=== PATIENT | female | born 1960 | race Caucasian/White ===

== ENCOUNTER 2017-04-14 07:17 | Observation (INO) | payer OTHER ==
[~2017-04-14] VITALS: Ht 165.1 cm; Wt 132.8 kg
[~2017-04-14 07:17] MED LIST: BACITRACIN TOP OINT 15 GM TUBE ONE; LIDOCAINE 1%/EPINEPHrine 1:100,000 SOLN 30 ML VIAL ONE; OXYMETAZOLINE HCL 0.05% 15 ML NASAL SPRAY ONE
[2017-04-14 07:47] VITALS: BP 159/82; PULSE 65; RESP 18; TEMP 97.7; O2SAT 96
[2017-04-14] MEDS ORDERED: SODIUM CHLORIDE 0.9% INJ 50 ML ONE (08:03)
[2017-04-14] MEDS ORDERED: LACTATED RINGER'S 1000 ML INJ 1,000 ML ONE (08:03)
[2017-04-14] MEDS ORDERED: CLINDAMYCIN PHOS 900 MG/6 ML VIAL ONE (08:03)
[2017-04-14] MEDS ORDERED: OXYB5TAB10 PO (08:11)
[2017-04-14] MEDS ORDERED: FLUT1SPR5 EACH NARE (08:11)
[2017-04-14] MEDS ORDERED: AMLO5CAP3 PO (08:11)
[2017-04-14] MEDS ORDERED: FLUTI110I INH (08:11)
[2017-04-14] MEDS ORDERED: ALBUAER3 INH (08:11)
[2017-04-14] MEDS ORDERED: fentaNYL CITRATE 250 MCG/5 ML AMP ONE (08:16)
[2017-04-14] MEDS ORDERED: ACETAMINOPHEN 1000 MG/100 ML VIAL IV ONE (08:25)
[2017-04-14] MEDS ORDERED: ONDANSETRON HCL 4 MG/2 ML VIAL IV PUSH ONE (12:00)
[2017-04-14] MEDS ORDERED: PROPOFOL 200 MG/20 ML AMP IV ONE (12:00)
[2017-04-14] MEDS ORDERED: NEOSTIGMINE 3 MG/3 ML SYR IV ONE (12:00)
[2017-04-14] MEDS ORDERED: ONDANSETRON HCL 4 MG/2 ML VIAL IV PUSH PRN (12:15)
[2017-04-14] MEDS: LACTATED RINGER'S 1000 ML INJ 1,000 ML IV SCH ×2 (12:34→23:30)
[2017-04-14 12:45] VITALS: O2SAT 97
[2017-04-14 13:25] VITALS: BP 156/81; PULSE 76; RESP 19; TEMP 97.2; O2SAT 98
[2017-04-14] MEDS: ACETAMINOPHEN/HYDROcodone 325 MG/5 MG TAB PO PRN ×2 (15:05→23:25)
[2017-04-14] MEDS: CLINDAMYCIN 600 MG/NS 100 ML IV SCH ×4 (15:44→23:30)
[2017-04-14 17:37] VITALS: BP 165/98; PULSE 87; RESP 19; TEMP 95.7; O2SAT 96
--- NOTE | 2017-04-14 18:24 | EKG ---
Date Performed: 04/14/2017 Time Performed: 08:30:30 PTAGE: 57 years EKG: Sinus rhythm . Poor R wave progression - probable normal variant Low QRS voltages in precordial leads Borderline E CG NO PREVIOUS TRACING DOCTOR: Flako Holbrook Interpretating Date/Time 04/14/2017 18:22:51
[2017-04-14 20:00] VITALS: BP 131/80; PULSE 85; RESP 20; TEMP 96.7; O2SAT 94; O2SAT 96
[2017-04-15] VITALS: BP 105/60; PULSE 77; RESP 20; TEMP 96.7; O2SAT 96
[2017-04-15 04:00] VITALS: BP 109/61; PULSE 70; RESP 20; TEMP 96.4; O2SAT 98
--- NOTE | 2017-04-15 06:46 | MP ---
cc: ZACHARY LEE M.D. DATE OF OPERATION April 14, [address] Zachary Lee PREOPERATIVE DIAGNOSES 1. Sinonasal polyposis. 2. Chronic pansinusitis. 3. Nasal airway obstruction. 4. Nasal septal deviation. 5. Hypertrophy of inferior turbinates. POSTOPERATIVE DIAGNOSES 1. Sinonasal polyposis. 2. Chronic pansinusitis. 3. Nasal airway obstruction. 4. Nasal septal deviation. 5. Hypertrophy of inferior turbinates. OPERATION PERFORMED 1. Open repair nasal septal fracture. 2. Bilateral submucosal resection of inferior turbinates. 3. Bilateral endoscopic debridement of endonasal polyps. 4. Bilateral endoscopic total ethmoidectomy. 5. Bilateral endoscopic maxillary antrostomy with removal of maxillary sinus polypoid tissue. 6. Bilateral endoscopic exploration of frontal sinus ducts with balloon dilation. 7. Bilateral endoscopic sphenoidotomy with removal of sphenoid sinus contents. INDICATIONS Documented in the history and physical. DESCRIPTION OF OPERATION The patient was taken to OR #2 and placed in the supine position. Following induction of general anesthesia and intubation, the nose was packed bilaterally with cotton pledgets saturated in 0.05% oxymetazoline. The nasal septum was injected with a total of 40 mL of 1% Xylocaine with epinephrine 1:100,000 and she was then prepped and draped for surgery. The nasal packing was removed and a hemitransfixion incision was made in the left nasal vestibule and through this incision the mucosa of septum was elevated bilaterally as far as the junction of the bony and cartilaginous septum. A cumulative area of 2 x 2.5 cm of very thick, twisted and irregular quadrangular cartilage was removed preserving 1.5 cm dorsal and caudal cartilaginous struts. When this was completed, the remainder of the mucosa was elevated from the bony septum and the maxillary crest and these were removed using [place]-Akhtar forceps and [place] septal forceps on the bony septum and a 6-mm Gavin chisel on the maxillary crest. The incision was then closed with a running suture of 4-0 chromic and the mucosal layers of septum were approximated to each other with a quilting stitch of 4-0 plain gut. The inferior turbinates were addressed next. They were fractured out medially and stab incisions made along their inferior surfaces and through these incisions the submucosal soft tissue was reduced using a curette and preserving the conchal bone. The incision was then cauterized using suction Bovie at 35 morton and the remnants of the inferior turbinates were then relateralized to the lateral nasal wall. From this point forward the operation was completed under endoscopic visualization. Additional injections of lidocaine and epinephrine were made into the polypoid tissue which was filling the nasal vault bilaterally. This was then removed using blunt and powered dissection. Specimens of the polypoid tissue were obtained bilaterally and were labeled for histological examination, left and right sinus contents. Power debridement continued until the lateral nasal wall was visible on both sides. At this point the left side was then addressed beginning with amputation of the middle turbinates using blunt and power dissection. This was carried back as far as the posterior lateral and the middle turbinate. The right side was then operated in the same fashion and these middle turbinates were also included in the left and right sinus content specimens. Returning to the left side, the uncinate process was removed using a sickle knife exposing the ethmoid bullae and the anterior ethmoids. These were filled with polypoid tissue. The anterior ethmoids were broken up using blunt dissection, then removed using a power debrider. This carried back as far as the basal lamella which was then removed medially to laterally exposing the posterior cells also filled with polypoid tissue. These were exonerated an identical fashion back as far as the rostrum of the sphenoid. When this was completed the right maxillary ostium was probed using a 3-mm olive-tipped suction. The ostium was then enlarged using the power debrider and Stammberger forceps. This gave access to the left maxillary cavity which was filled with polypoid tissue. This was debrided using the blunt and powered dissection. When this cavity was finished, the left sphenoid was addressed. It was probed using a #10 suction on the sphenoid rostrum and then bluntly penetrated and it was exonerated through the enlarged ostium and also through the posterior ethmoids. At this point the left cavities were irrigated and suctioned and were packed with cotton pledgets saturated in oxymetazoline that remained in place while the right side was operated in the same fashion beginning with the uncinectomy, powered and blunt exoneration of the anterior and posterior ethmoids, followed by enlargement of the right maxillary ostium and debridement of the right maxillary sinus cavity. The right sphenoid was then operated in the same fashion as the last with dilation of the ostium using a #10 suction and the power debrider and then blunt penetration into the sphenoid through the posterior ethmoid cells. The cavity was then debrided of polypoid tissue. This side was then also irrigated and packed with the cotton pledgets saturated in oxymetazoline. These remained in place on both sides while the balloon dilation and exploration of the frontal sinus ducts was completed, the left side first. The guidewire was advanced into the frontal ducts and then the balloon over the wire. The balloon was inflated at three levels to a pressure of 12 atmospheres superiorly at the midpoint of the duct and inferiorly where the duct joins the ethmoid cells. It was then removed and, using a 70-degree scope, the duct was verified patent all the way into the frontal sinus. Fragments of bone and soft tissue were taken down from this duct during this process. The right side was operated in the same fashion and the duct was debrided of bony fragments and inflamed mucosa. There was no purulence noted in either cavity. At this point the packing was removed from both sides. They were once again irrigated and suctioned and then filled with Stammberger sinus foam into the sphenoid, ethmoid and maxillary sinuses. The inferior half of the vault was then filled with 5.5-mm Rapid Rhino packs which were inflated with 5 mL of air. At this point the procedure was terminated. The patient was reversed from anesthesia and taken to Recovery in good condition. There were no complications. Blood loss was 600 mL. MD MARGIE Dominguez/BASHIR /2:16 PM /6:34 AM
== END 2017-04-15 07:45 | disposition home or self-care (01) ==
LOC: PHSDC 07:17 → PH3B 12:13
PROVIDERS: ADMIT Otolaryngology; ATTEND Otolaryngology
DX: J34.2 Deviated nasal septum (principal); J32.4 Chronic pansinusitis; J33.8 Other polyp of sinus; J34.3 Hypertrophy of nasal turbinates; J33.0 Polyp of nasal cavity; Z88.0 Allergy status to penicillin; Z88.5 Allergy status to narcotic agent
CPT/HCPCS: 30140; 30520; 31255; 31267; 31276; 31288; 88305; 88311; 93005; 94762; 96361; 96365; 96375; G0378; J0131; J2405; J2710; J3010; J7120